=== PATIENT | male | born 1975 | race Caucasian/White ===

== ENCOUNTER → 2017-09-07 15:41 | Outpatient (CLI) | payer BC, SELFPAY | LOC: SL 15:43 | PROVIDERS: PCP Nurse Practitioner Family; Visit Provider Nurse Practitioner Family | DX: G47.30 Sleep apnea, unspecified (principal) | CPT/HCPCS: 95806 ==

== ENCOUNTER → 2017-12-27 16:21 | Outpatient (CLI) | payer BC, SELFPAY ==
[2017-12-27 18:50] LABS: Alanine Aminotransferase 52 U/L (12-78); Albumin/Globulin Ratio 1.3 (1.1-1.8); Alkaline Phosphatase 79 U/L (46-116); Anion Gap 12.1 mEq/L (5-15); Aspartate Amino Transferase 28 U/L (15-37); Bilirubin,Total 0.4 mg/dL (0.2-1.0); Blood Urea Nitrogen 10 mg/dL (7-18); Calcium 8.9 mg/dL (8.5-10.1); Carbon Dioxide 29 mmol/L (21.0-32.0); Chloride 104 mmol/L (98-107); Chol/HDL Ratio 6.3 (1-3.5); Cholesterol 260 mg/dL (140-200); Creatinine,Serum 0.95 mg/dL (0.70-1.30); Estimated Glomerular Filt Rate 87 ml/min (>60); GFR (African American) 106 ML/MIN (>60); Globulin 3.2 gm/dl (1.3-3.2); Glucose 81 mg/dL (74-106); HDL Cholesterol 41 mg/dL (27-67); LDL Cholesterol 167 mg/dL (0-130); Potassium 4.1 mmoL/L (3.5-5.1); Sodium 141 mmol/L (136-145); Total Protein,Serum 7.2 gm/dL (6.4-8.2); Triglycerides 260 mg/dL (30-200); VLDL Cholesterol 52 mg/dL (0-40)
== END ==
PROVIDERS: PCP Internal Medicine Adolescent Medicine; Visit Provider Nurse Practitioner Family
DX: Z00.00 Encounter for general adult medical examination without abnormal findings (principal)
CPT/HCPCS: 36415; 80053; 80061

== ENCOUNTER 2020-12-11 01:51 | Emergency (ER) | payer BC, SELFPAY ==
[2020-12-11 02:03] VITALS: BP 160/91; PULSE 82; RESP 17; TEMP 36.7; O2SAT 100; BMI 29.9
--- NOTE | 2020-12-11 02:20 | ECG_ITS ---
APPROVED REPORT Exam: Resting ECG HR:67 bpm ECG Measurements Heart Rate 67 AXES NM 142 P 60 QRSd 78 QRS 54 QT 412 T 72 QTc 435 Conclusion Normal sinus rhythm Normal ECG Electronically signed by : David Kaplan MD 12/12/2020 16:04:18
[2020-12-11 02:30] VITALS: BP 138/83; PULSE 68; O2SAT 100
--- NOTE | 2020-12-11 02:34 | XR_ITS ---
PROCEDURE INFORMATION: Exam: XR Chest Exam date and time: 12/11/2020 2:34 AM Age: 45 years old Clinical indication: Other: Elevated BP chest feels tight; Additional info: Chest tightness, high BP TECHNIQUE: Imaging protocol: XR of the chest. Views: 1 view. COMPARISON: CR CXR CHEST(2 VIEWS-NOT PORTABLE) 12/25/2014 4:58 PM FINDINGS: Lungs: There is mild diffuse coarse interstitial prominence similar to the prior exam which may be chronic. Pleural spaces: There is no pleural effusion or pneumothorax. Heart/Mediastinum: The cardiac silhouette and mediastinal contours are unremarkable. Bones/joints: The bones are intact. IMPRESSION: No acute cardiopulmonary disease.
[2020-12-11 02:52] LABS: Basophils # 0.1 K/mm3 (0-0.2); Eosinophils # 0.3 K/mm3 (0.0-0.4); Eosinophils % 4.2 % (0.1-12.0); Hematocrit 49.2 % (42.0-52.0); Hemoglobin 15.8 g/dL (14.1-18.0); Lymphocytes # 2.2 K/mm3 (0.7-4.5); Lymphocytes % 33.3 % (10-50); Mean Corpuscular HGB Conc 32.2 g/dL (31.8-35.4); Mean Corpuscular Hemoglobin 29.7 pg (27.0-31.2); Mean Corpuscular Volume 92.4 fl (80-94); Mean Platelet Volume 9.3 fl (7.4-10.4); Monocytes # 0.4 K/mm3 (0.1-1.0); Monocytes % 6.4 % (1.7-9.3); Neutrophils # 3.7 K/mm3 (1.8-7.8); Neutrophils % 55.1 % (37.0-80.0); Platelet Count 190 K/mm3 (142-424); Red Blood Count 5.32 M/mm3 (4.60-6.20); Red Cell Distribution Width 13.2 % (11.5-17.5); White Blood Count 6.6 K/mm3 (4.8-10.8)
[2020-12-11 03:01] LABS: Alanine Aminotransferase 42 U/L (12-78); Albumin Level 4.5 g/dl (3.5-5.0); Alkaline Phosphatase 69 U/L (38-126); Anion Gap 16.3 mEq/L (5-15); Aspartate Amino Transferase 41 U/L (17-59); Bilirubin,Direct 0.2 mg/dl (0.0-0.4); Bilirubin,Indirect 0.1 mg/dL (0.0-0.9); Bilirubin,Total 0.3 mg/dl (0.2-1.3); Bilirubin,Unconjugated 0.1 mg/dL (0.0-1.1); Blood Urea Nitrogen 9 mg/dl (9-20); Calcium 9.2 mg/dl (8.4-10.2); Carbon Dioxide 26 mmol/L (22.0-30.0); Chloride 103 mmol/L (98-107); Creatinine Clearance Estimated 128 mL/min (50-200); Estimated Glomerular Filt Rate 92 ml/min (>60); GFR (African American) 111 ML/MIN (>60); Glucose 111 mg/dl (74-100); Potassium 4.3 mmoL/L (3.5-5.1); Sodium 141 mmol/L (136-145); Total Protein,Serum 7.5 g/dl (6.3-8.2)
[2020-12-11 03:06] LABS: C-Reactive Protein 5.4 mg/L (0-4)
[2020-12-11 03:12] LABS: NT Pro Brain Natriuretic Pep. 45.5 pg/mL (0-125)
[2020-12-11 03:21] LABS: T4 (Thyroxine) 10.4 ug/dl (5.53-11.0)
[2020-12-11 03:25] LABS: Troponin I < 0.01 ng/ml (0.00-0.034)
[2020-12-11 03:34] LABS: Thyroid Stimulating Hormone 3.83 uIU/mL (0.465-4.68)
[2020-12-11 03:35] LABS: Erythrocyte Sedimentation Rate 4 mm/hr (0-15)
[2020-12-11 04:00] VITALS: BP 132/92; PULSE 63; O2SAT 99
[2020-12-11 05:08] VITALS: BP 121/78; PULSE 59; O2SAT 98
[2020-12-11 06:00] VITALS: BP 121/83; PULSE 58; O2SAT 98
--- NOTE | 2020-12-11 06:12 | [facility].EDCP ---
ED Disposition Clinical Impression: Chest pain Qualifiers: Chest pain type: precordial pain Qualified Code(s): R07.2 - Precordial pain Disposition: Home, Self-Care Condition on Discharge: Good Instructions: DI for Atypical Chest Pain Additional Instructions: see pcp and card sunday Referrals: Leah Zamora APRN [Primary Care Provider] - - Critical Care Critical Care Time: No Attestation: On 12/11/20, the high probability of a clinically significant, sudden or life threatening deterioration of the following system(s) required my full and direct attention, intervention and personal management. The time I documented below is in addition to time spent performing reported procedures but includes the following listed in this critical care notation. Medical Decision Making - Medical Records Medical records reviewed: Yes: I reviewed the patient's medical records. - Eduardo Inquiry Pt receiving controlled substance: No Vital Signs: 12/11/20 02:03 Temperature 98.0 F Temperature Source Oral Pulse Rate [Right Brachial] 82 Respiratory Rate 17 Blood Pressure [Right Arm] 160/91 H Blood Pressure Mean [Right Arm] 114 Blood Pressure Source [Right Arm] Automatic Cuff Blood Pressure Position [Right Arm] Sitting 02 Sat by Pulse Oximetry 100 Oxygen Delivery Method Room Air - Lab Data Lab results reviewed: Yes: I reviewed the patient's lab results. Lab Results 12/11/20 02:41: WBC 6.6, RBC 5.32, Hgb 15.8, Hct 49.2, MCV 92.4, MCH 29.7, MCHC 32.2, RDW 13.2, Plt Count 190, MPV 9.3, Neut % (Auto) 55.1, Lymph % (Auto) 33.3, Williamson % (Auto) 6.4, Eos % (Auto) 4.2, Baso % (Auto) 1.0, Neut # (Auto) 3.7, Lymph # (Auto) 2.2, Williamson # (Auto) 0.4, Eos # (Auto) 0.3, Baso # (Auto) 0.1 12/11/20 02:41: Sodium 141, Potassium 4.3, Chloride 103, Carbon Dioxide 26, Anion Gap 16.3 H, BUN 9, Creatinine 0.90, Estimated Creat Clear 128, Estimated GFR 92, Est GFR ( Amer) 111, Glucose 111 H, Calcium 9.2, Total Bilirubin 0.3, Direct Bilirubin 0.2, Conjugated Bilirubin 0.0, Indirect Bilirubin 0.1, Unconjugated Bilirubin 0.1, AST 41, ALT 42, Alkaline Phosphatase 69, Troponin I < 0.01, Total Protein 7.5, Albumin 4.5, TSH 3.83, Thyroxine (T4) 10.4 12/11/20 02:41: C-Reactive Protein 5.4 H, NT-Pro-B Natriuret Pep 45.5 12/11/20 02:41: ESR 4 Result diagrams: 12/11/20 02:41 12/11/20 02:41 Orders (Tests/Meds): ED MEDICATIONS Discontinued Medications Generic Name Dose Route Start Last Admin Trade Name Freq PRN Reason Stop Dose Admin Aspirin 324 mg 12/11/20 02:35 12/11/20 02:35 Aspirin 81mg Chewable Tablet PO 12/11/20 02:36 324 mg ONCE ONE Administration ORDERS Category Date Time Status Troponin I Q3H Lab 12/11/20 05:24 Received Troponin I Q3H Lab 12/11/20 08:45 Ordered - Radiology Data #1 Image(s): Chest Image Reviewed: Yes I have reviewed radiologist's interpretation Preliminary Findings: Normal/NAD - ECG Data Tracing #1 Normal Sinus Rhythm: Yes Ischemic changes: non-specific ST-T wave changes Medical Decision Narrative: possible angina episode but has stable exam and bp with labs ok will ask pt to see card sunday am and return to ed if any more episodes Chest Pain HPI - General Chief Complaint: Chest Pain Stated Complaint: High BP and feels like obsruction in throat Time Seen by Provider: 12/11/20 02:10 Mode of Arrival: Family Vehicle Source of Information: Patient, Medical Record Limitations: No Limitations Description of Symptoms (Recalled from ER Triage Doc. by RN): PT WAS AT WORK WHEN HE BEGAN EXPERIENCING A FEELS LIKE I SWALLOWED SOMETHING AND GOT IT STUCK -TYPE FEELING. BLOOD PRESSURE WAS CHECKED AND FOUND TO BE 160-180 SYSTOLIC OVER MID 90'S. TAKES NO MEDS, HAS NO SIG HISTORY. SMOKES APPROX 1 PPD. VSS. NO TRUE PAIN OR RADIATION AT THIS TIME. DENIES NAUSEA. MILD LIGHTHEADNESS - History of Present Illness HPI narrative: at work had episode of mid-chest sensation of someth
[2020-12-11 06:13] LABS: Troponin I < 0.01 ng/ml (0.00-0.034)
[2020-12-11 06:23] VITALS: BP 121/83; PULSE 59; RESP 17; TEMP 36.8; O2SAT 98
== END 2020-12-11 06:29 | disposition home or self-care (01) ==
PROVIDERS: Emergency Provider Emergency Medicine; PCP Nurse Practitioner Family
DX: R07.2 Precordial pain (principal); R42 Dizziness and giddiness; K21.9 Gastro-esophageal reflux disease without esophagitis; F17.210 Nicotine dependence, cigarettes, uncomplicated
CPT/HCPCS: 71045; 80048; 80076; 83880; 84436; 84443; 84484; 85025; 85651; 86140; 93005; 99283

== ENCOUNTER → 2021-04-26 12:21 | Outpatient (CLI) | payer BC, SELFPAY | PROVIDERS: PCP Internal Medicine Adolescent Medicine; Visit Provider Nurse Practitioner | DX: Z20.822 Contact with and (suspected) exposure to COVID-19 (principal) | CPT/HCPCS: C9803; U0003; U0005 ==

== ENCOUNTER 2022-05-25 14:09 | Emergency (ER) | payer OTHER, BC, SELFPAY ==
[2022-05-25 14:13] VITALS: BP 177/101; PULSE 84; O2SAT 99
[2022-05-25 14:14] VITALS: BP 177/101; PULSE 86; RESP 18; TEMP 36.7; O2SAT 99; BMI 28.8
--- NOTE | 2022-05-25 14:35 | [facility]H.EDGENADL ---
Discharge Plan Disposition Patient Disposition: Home, Self-Care Prescriptions Prescriptions: New hydrocodone-acetaminophen 5-325 mg tablet 1 tab PO Q6H PRN (Reason: pain) 3 Days Qty: 12 0RF Referrals Follow up/Referrals: David Kaplan MD [Primary Care Provider] - See instructions Activity Restrictions/Add. Instructions Additional Instructions/Restrictions: Please generously apply topical antibiotic ointment specifically triple antibiotic ointment or Neosporin twice a day for the next week. If you have concerns with wound healing or if there is more evidence of second-degree castelan you may follow-up with plastic surgery otherwise there is should be nothing else to do and this is supportive care may follow-up with your primary care doctor ensure appropriate wound healing. Please keep topical antibiotic ointment on the wound to prevent secondary infection. Return to the emergency department with any concerns of infection Clinical Impressions Clinical Impression: Superficial partial thickness burn of abdominal wall, Superficial burn of abdominal wall Discharge ED Provider: Florentin Jon General Adult HPI General Chief complaint: Burn/Smoke Inhalation Stated complaint: RT chest water burn AO@Work 05/25 1330 Time Seen by Provider: 05/25/22 14:35 Mode of Arrival: Ambulatory Source of Information: Patient Limitations: No Limitations Description of Symptoms (Recalled from ER Triage Doc. by RN): Pt reports during work at [employer] today a radiator hose was loose and sprayed boiling hot water on his chest over work uniform, he has approx 12 x 8 area of partial thickness-appearing thermal burn w smaller area of blistering, painful History of Present Illness HPI narrative: Patient is a 47-year-old male presents today with hot water burn to his anterior abdominal wall. States he was working 90 degree water struck his anterior abdominal wall. Pain is moderate to severe he did not have any injuries anywhere else. Related Data Previous Rx's Medication Instructions Recorded hydrocodone 5 mg-acetaminophen 325 1 tab PO Q6H PRN pain 3 days #12 05/25/22 mg tablet tabs Allergies Allergy/AdvReac Type Severity Reaction Status Date / Time No Known Allergies Allergy Verified 03/22/19 15:45 [facility] Disclaimer: The information contained in this section may have been updated after the patient was seen, as this information can be updated by other users. Social History Smoking Status: Current every day smoker alcohol intake: never substance use type: former substance user current occupational status: other Travel in the last 8 weeks: Inside the [place] household members: family ROS Obtained: Yes All systems reviewed & no additional complaints except as documented Physical Exam General General appearance: alert and in no apparent distress Respiratory Respiratory exam: Present normal lung sounds bilaterally; Absent respiratory distress, wheezes or stridor Cardiovascular Cardiovascular exam: Present regular rate; Absent tachycardia Abdominal Exam Abdominal exam: Present other (Anterior abdominal wall 2% superficial abdominal wall castelan only a few small punctate areas of superficial partial-thickness castelan ) Neurological Exam Neurological exam: Present alert and oriented X3 Medical Decision Making Eduardo Inquiry Pt receiving controlled substance: No Eduardo was queried for this patient: No Vital Signs: 05/25/22 14:14 05/25/22 14:13 Temperature 98.0 F Temperature Source Oral Pulse Rate 84 Pulse Rate [Right Radial] 86 Respiratory Rate 18 Blood Pressure 177/101 H Blood Pressure [Right Arm] 177/101 H Blood Pressure Mean 129 Blood Pressure Mean [Right Arm] 126 Blood Pressure Source [Right Arm] Automatic Cuff Blood Pressure Position [Right Arm] Sitting 02 Sat by Pulse Oximetry 99 99 Oxygen Delivery Method Room Air Room Air Orders (Tests/Meds): ED MEDICATIONS Disconti
[2022-05-25 14:55] VITALS: BP 151/94; PULSE 70; RESP 19; TEMP 36.6; O2SAT 100
== END 2022-05-25 14:56 | disposition home or self-care (01) ==
PROVIDERS: Emergency Provider Student in an Organized Health Care Education/Training Program; PCP Internal Medicine Adolescent Medicine
DX: T21.22XA Burn of second degree of abdominal wall, initial encounter (principal); X12.XXXA Contact with other hot fluids, initial encounter; Y99.0 Civilian activity done for income or pay; F17.210 Nicotine dependence, cigarettes, uncomplicated; T31.0 Burns involving less than 10% of body surface
CPT/HCPCS: 99283; 99284

== ENCOUNTER → 2022-06-19 23:31 | Outpatient (CLI) | payer BC, SELFPAY | PROVIDERS: PCP Student in an Organized Health Care Education/Training Program; Visit Provider Student in an Organized Health Care Education/Training Program | DX: U07.1 COVID-19 (principal); J02.9 Acute pharyngitis, unspecified | CPT/HCPCS: 87070; C9803; U0003; U0005 ==